=== PATIENT | female | born 1945 | race Caucasian/White ===

== ENCOUNTER 2025-08-12 10:32 | Day surgery (SDC) | payer MEDICARE ==
[2025-08-11 14:59] LABS: MEAN PLATELET VOLUME 7.5 FL (7.4-10.4); RED CELL DISTRIBUTION WIDTH 14.4 % (11.5-14.5)
[2025-08-11 15:20] LABS: CREATININE 0.56 MG/DL (0.40-0.90); TOTAL CARBON DIOXIDE 28.5 MMOL/L (24-32); eGFR > 90 ML/MIN
[2025-08-11 15:23] LABS: APTT 26 SECONDS (22-32); INR 1.0 INR
[2025-08-12] VITALS (13 sets, daily range): BP systolic 116–146; BP diastolic 44–72; PULSE 54–68; RESP 14–16; TEMP 98.2; O2SAT 93–99
[~2025-08-12] VITALS: Ht 165.1 cm; Wt 76.4 kg
[2025-08-12] MEDS ORDERED: CARV25TA56 PO (12:01)
[2025-08-12] MEDS ORDERED: TRAM50TA2 PO (12:01)
[2025-08-12] MEDS ORDERED: verapamil 2.5 mg/ml inj IV ONE (12:03)
[2025-08-12] MEDS ORDERED: LIDOcaine 1% (10mg/ml) 2ml vial ONE ×2 (12:03→12:05)
[2025-08-12] MEDS ORDERED: iohexol 350 MG/ML 50ML vial IV ONE ×2 (12:04→13:23)
[2025-08-12] MEDS ORDERED: midazolam 1 mg/ML 2ml injection ONE (12:04)
[2025-08-12] MEDS ORDERED: fentaNYL/PF 50MCG/1 ML 2ML syringe ONE (12:04)
[2025-08-12] MEDS ORDERED: heparin 1,000unit/ml 10ml vial 10 ML ONE (12:04)
[2025-08-12] MEDS ORDERED: nitroGLYCERIN 500mcg/5mL D5W 5 ML IV ONE (12:05)
--- NOTE | 2025-08-12 12:13 | ELECTROCARDIOGRAPH REPORT ---
[facility] Date: 2025-08-12 Test Time: 12:10:24 Pat Name: JAMESON DELVALLE Department: [facility] Patient ID: [id number] Room: Gender: F Perinatal Director: : 1945 Requested By: KENDRA TOSCANO Order Number: [id number] Reading MD: Dr. JOSE ANTONIO Toscano Measurements Intervals [place] Rate: 57 P: 19 UT: 148 QRS: 26 QRSD: 91 T: 33 QT: 439 QTc: 428 Interpretive Statements Sinus rhythm Electronically Signed On 08-12-2025 16:29:[address] JOSE ANTONIO Toscano Please click the below link to view image of tracing.
[2025-08-12 13:25] LABS: ISTAT HGB ART 11.9 g/dl (12.0-16.0); ISTAT Hct ART 35 %PCV (35-45); ISTAT O2 SATURATION ARTERIAL 96 % (95-98); ISTAT SOURCE ART
[2025-08-12] MEDS ORDERED: ASPI81TA52 PO (14:12)
[2025-08-12] MEDS ORDERED: ROSU40TA PO (14:12)
--- NOTE | 2025-08-13 06:03 | CARDIOLOGY REPORT ---
DATE OF SERVICE: 08/12/2025 DICTATING PHYSICIAN: JOSE ANTONIO Burdick MD CARDIAC CATHETERIZATION PRIMARY PHYSICIAN: Dr. Schmitt. CARDIOLOGY: JOSE ANTONIO Burdick MD. GENDER: Female. AGE: 79 years. HEIGHT: 165 cm. WEIGHT: 76.4 kg. BODY SURFACE AREA: 1.84 m2. INDICATION: The patient is an 79-year-old female with history of hypertension, hyperlipidemia, exertional fatigue and shortness of breath, and her myocardial perfusion scan from 08/18/2024 showed anteroseptal ischemia, distal anteroseptal. The patient underwent and had a CT coronary angiography on 07/18/2025 at [place]. Coronary calcium score was 371 with poor opacification of the arteries and the report was inconclusive. Currently, the patient needs surgical clearance for her back surgery. After discussing risks, benefits, and alternative options, the patient prefers to proceed with coronary angiography. Risks, benefits, and alternative options were discussed. Informed consent was obtained. PROCEDURE TECHNIQUE: The patient underwent right heart catheterization from right antecubital approach, a 6-Wallisian right radial sheath. Hemostasis secured with pressure bandage. Left heart catheterization from right radial approach, a 6-Wallisian right radial sheath. Post-procedure access site hemostasis secured with right radial band. The patient tolerated the procedure well. COMPLICATIONS: None. PROCEDURES DONE: 1. Ultrasound-guided right radial artery visualization and access. 2. Right heart catheterization. 3. Left heart catheterization. 4. LVG. 5. Coronary cineangiography. 6. Conscious sedation time 30 minutes. FINDINGS: HEMODYNAMICS: Aortic systolic 169 mmHg, diastolic 61 mmHg, mean 109 mmHg. LVEDP of 20 mmHg. There is no significant gradient across the aortic valve. Right atrial mean 3 mmHg, RV 30/5 mmHg, PA 27/5 mmHg, pulmonary capillary wedge pressure 10 mmHg, aortic oxygen saturation 96%, pulmonary arterial oxygen saturation 76%. Cardiac output by thermodilution method is 6.8 L/min and cardiac index was 3.7 L/min/m2. LEFT VENTRICULOGRAM: Overall left ventricular systolic function normal with LV ejection fraction of about 70%. CORONARY CINEANGIOGRAPHY: There is [id number] calcification of her coronary arteries seen. The patient has tortuosity in the brachiocephalic trunk and hence, regular JL4 and JL3.5 catheter would not give her adequate support and torque ability. Left main coronary artery is a large caliber vessel, arising from the left aortic sinus and because of the brachiocephalic tortuosity, JL 4 and JL 3.5 would not torque adequately in the proximal ascending aorta. Finally, TIG catheter was able to engage her left main. Left main coronary artery is a medium to large caliber vessel, arising from the left aortic sinus with a distal 20% narrowing. LAD is a medium caliber vessel arising at the bifurcation of left main coronary artery, courses through the anterior interventricular groove, ends by wrapping around the LAD. Mid LAD after the septal joint sealer shows about 60% to 70% narrowing. Diagonal is 2 mm caliber with mild luminal irregularities. Circumflex artery is of medium caliber, tortuous with mid 50% narrowing. OM is otherwise 2.5 mm caliber with mild luminal irregularities. Right coronary artery is a medium caliber dominant vessel, arising from the right aortic sinus and coursed through the right AV groove and ends at the posterior crux by dividing into the PDA and posterolateral branch. Mid RCA has about 60% narrowing. IMPRESSION: An 79-year-old female with left ventricular ejection fraction of 70%, left ventricular end-diastolic pressure of 20 mmHg with no gradient across the aortic wall. Left main distal 20% narrowing. Mid left anterior descending 60% to 70 % narrowing. Mid circumflex with 50% narrowing. Mid right coronary artery has 60% narrowing. 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 Since option of aggressive treatment of for CAD with medical therapy to get her through the impending Spine surgery discussed with patient and her daughter. They would like to Have another discussion with the spine surgeon and make a decision. They are leaning towards getting the spine surgery done and come back for LAD intervention later on. If patient and her spine surgeon prefers to have the LAD lesion fixed prior to spine surgery She will call me back to facilitate the same. In the meantime Recommend continued aggressive coronary risk factor modification, namely low fat, low cholesterol diet, maintaining ideal body weight, keeping LDL at 55 mg, recommend either statins or PCSK9 inhibitors. Risks, benefits and alternative options were discussed with the patient. JOSE ANTONIO Burdick MD TID: [id number] RECEIPT: [id number] BC/SIR cc: Stanislaw Schmitt MD [facility]
== END 2025-08-12 18:57 | disposition home or self-care (01) ==
LOC: SSTAY O 10:32
PROVIDERS: ATTEND Internal Medicine Cardiovascular Disease
DX: R94.39 Abnormal result of other cardiovascular function study (principal); I25.10 Atherosclerotic heart disease of native coronary artery without angina pectoris; I10 Essential (primary) hypertension; E78.5 Hyperlipidemia, unspecified; Z79.899 Other long term (current) drug therapy; Z90.89 Acquired absence of other organs; Z88.0 Allergy status to penicillin
CPT/HCPCS: 36415; 80048; 82803; 85014; 85025; 85610; 85730; 93005; 93460; 99152; 99153; A6258; A6402; C1725; C1751; C1894; J1200; J1644; J2003; J2250; J3010; J3490; J7030; Q9967; Z7610; 76937